=== PATIENT | female | born 1990 | race Caucasian/White ===

== ENCOUNTER 2016-10-19 16:15 | Outpatient (RCR) | payer BC | END 2016-10-31 | disposition home or self-care (01) | LOC: MKS.ESL.PT | DX: N81.89 Other female genital prolapse (principal) | CPT/HCPCS: G0283-GP ==

== ENCOUNTER 2017-02-12 16:15 | Outpatient (RCR) | payer BC | END 2017-02-20 | LOC: MKS.ESL.PT | DX: N94.810 Vulvar vestibulitis (principal); N81.89 Other female genital prolapse | CPT/HCPCS: G0283-GP ==

== ENCOUNTER 2017-03-14 16:32 | Outpatient (RCR) | payer BC | END 2017-06-12 | LOC: MKS.ESL.PT | DX: N81.89 Other female genital prolapse (principal) | CPT/HCPCS: G0283-GP ==